=== PATIENT | male | born 1955 | race Caucasian/White ===

== ENCOUNTER 2016-09-13 15:20 | Emergency (ER) | payer MEDICAID, MEDICARE ==
[~2016-09-13] VITALS: Ht 175.3 cm; Wt 100.0 kg
[~2016-09-13 15:20] MED LIST: CLIN1CAP5 PO; GLIP10TA6 PO; HYDR-3533 PO; LISI-515 PO; LYRI100C PO; METF500T PO; METO25TA3 PO; OMEG100010; PLAV75TA29 PO; PRAV80TA2 PO; TAMS0.4C4 PO; TRAD5TAB PO; TRAZ100T4 PO; WARF-23 PO; WARF4TAB52 PO; WELC625T2 PO
[2016-09-13 15:23] VITALS: BP 118/94; PULSE 93; RESP 16; TEMP 97.8; O2SAT 96
[2016-09-13 15:50] VITALS: BP 174/93
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
[2016-09-13] MEDS ORDERED: SILVER NITR/POTASSIUM NITRATE APPLICATORS TOPICAL ONE (16:00)
[2016-09-13 16:20] LABS: INTERNATIONAL NORMALIZED RATIO 3.5 RATIO; PROTHROMBIN TIME - PATIENT 40.3 SEC (9.8-11.6)
[2016-09-21] MEDS ORDERED: LIDO5DIS35 TOPICAL (15:30)
[2016-09-22] MEDS ORDERED: DICL1GEL TOPICAL (12:04)
== END 2016-09-13 16:44 | disposition home or self-care (01) ==
LOC: NEPC 15:20
DX: L76.21 Postprocedural hemorrhage of skin and subcutaneous tissue following a dermatologic procedure (principal); Z79.01 Long term (current) use of anticoagulants
CPT/HCPCS: 12001; 85610